=== PATIENT | male | born 1950 | race Caucasian/White ===

== ENCOUNTER 2016-10-14 09:45 | Emergency (ER) | payer OTHER ==
[2016-10-14] MEDS ORDERED: XYLOCAINE 1% and EPINEPHRINE 1:100,000 ONE (09:46)
[2016-10-14 09:50] VITALS: BMI 17.6
[2016-10-14 09:56] VITALS: BP 200/80
--- NOTE | 2016-10-14 10:16 | RAD ---
HISTORY: pain Study: Right shoulder series Comparison: None Findings: There is mild narrowing of the glenohumeral joint. No fracture or dislocation is seen. There are mod erate hypertrophic changes of the AC joint. The bones are osteopenic. No fracture or dislocation is seen. There is some questionable parenchymal opacity along the right perihilar region with a metalli c foreign body seen projecting over the chest. 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 Vague parenchymal opacity along the right perihilar region with a metallic linear artifact projectin g in the area. Recommend a followup PA and lateral chest. Reported By:
--- NOTE | 2016-10-14 10:41 | RAD ---
HISTORY: Abnormal lesion Study: PA and lateral Comparison: CT chest 12/18/2014 Findings: The heart is normal. The pulmonary vessels are normal. The lungs are mildly hyperinflated and emphys ematous. There is some linear parenchymal scarring along the right apex extending laterally . There is a rounded and irregular focal parenchymal opacity along the right upper lobe inferior laterally m easuring 2.6 cm which was seen on the prior CT scan and was partially calcified at that time and leyva s not appear to be significantly changed . There is a smaller nodule in the right upper lobe anterio rly which is also partially calcified and unchanged. There is a 1.2 cm linear metallic foreign body seen posteriorly along the upper chest wall on the right which was not seen on the prior CT scan. Th ere is no effusion or pneumothorax. IMPRESSION: 1.2 cm linear metallic foreign body seen along the posterior upper chest on the right, the position of which is uncertain. This was not seen on the prior CT scan and 2015 , recommend clinical followup . Chronic obstructive lung changes with right biapical pleural thickening and scarring and parenchymal nodules along the right upper lobe anteriorly and posteriorly which appear partially calcified and are grossly unchanged from the prior CT scan. Mild bibasilar linear scarring along the lung bases with no acute infiltrate or effusion. Reported By:
--- NOTE | 2016-10-14 11:32 | CT ---
HISTORY: Possible foreign object. Was mowing when he thinks a stick or wire hit him in the back. W ound will not stop bleeding. Study: Noncontrast CT scan of the chest Comparison: Chest x-ray done earlier on the same date Technique: non contrasted CT images of the chest are reviewed in axial, coronal and sagittal planes. Dose reduction techniques utilized automatic exposure control. Findings: There is a 1 centimeter metallic foreign body present projected in the interosseous space between th e right 5th and 6th ribs posterolaterally. This is just cephalad to the tip of the scapula. This is also medial to the scapula in location. The foreign body does not appear to enter the pleural space. No fractures are seen. Severe changes of COPD are again seen involving both lungs with calcified an d noncalcified granulomas present involving both lungs. No consolidation, pleural fluid or pneumotho rax is seen. Mild multilevel thoracic spondylosis is appreciated. Images did extend into the upper a bdomen. The uppermost portions of a aortic endo grafts are identified. There is incidentally seen to be a 5.4 millimeter solitary calcified gallstone. The liver and adrenal glands are normal. IMPRESSION: 1 Centimeter metallic foreign body present in the interosseous space between the right 5th and 6th ribs posterolaterally. This is just cephalad and medial to the tip of the scapula. The foreign body does not appear to enter the pleural space. Severe COPD. Calcified solitary gallstone. Reported By:
[2016-10-14] MEDS ORDERED: ADACEL TDaP IM ONE ×2 (11:57)
--- NOTE | 2016-10-14 12:00 | DR.GENAD ---
HPI - PCP Primary Care Physician: GIOVANNA - Complaint/Symptoms Chief Complaint Doctors Comments: Patient in on anticoagulants. Chief Complaint:: PATIENT WAS MOWING WHEN A HE THINKS THAT A STICK OR WIRE HIT HIM IN THE BACK. PATIENT NOW HAS A WOUND THAT WILL NOT STOP BLEEDING. FAMILY STATED THAT IT HAS BEEN BLEEDING NONE STOP FOR ABOUT 1HOUR AGO. - Source History Provided: Patient - Mode of Arrival Mode of Arrival: Ambulatory - Timing Onset of Chief Complaint: 10/14/16 PMH - PMH Past Medical History: No Past Surgical History: Yes Surgical History: AAA Repair - Family History History of Family Medical Conditions: No - Social History Does patient currently use any type of tobacco product: Yes Have you used tobacco products in the last 12 months: Yes Type of Tobacco Use: Cigarettes Does any household member use tobacco: No Alcohol Use: None Do you use any recreational Drugs:: No Lives With: Family Lives Where: Home - infectious screening In the last 2 months have you had wt loss of >10#?: NO Have you had fever, night sweats or hemotysis?: No Have you traveled outside the country in the last 6 months?: No Isolation: Standard ROS - Review of Systems Eyes: No Symptoms Reported ENTM: No Symptoms Reported Respiratoy: No Symptoms Reported Cardiovascular: No Symptoms Reported Gastrointestinal/Abdominal: No Symptoms Reported Genitourinary: No Symptoms Reported Neurological: No Symptoms Reported Musculoskeletal: Other (right inferior scapula a 0.5mm laceration) Integumentary: Wound Hematologic/Lymphatic: No Symptoms Reported Endocrine: No Symptoms Reported Psychiatric: No Symptoms Reported All Other Systems: Reviewed and Negative PE - Vital Signs Vitals: Temperature 98.3 F Pulse Rate 72 Respiratory Rate 20 Blood Pressure 200/80 O2 Sat by Pulse Oximetry 98 - General General Appearance: Alert, In No Apparent Distress - Head Head Exam: Normal Inspection, Atraumatic - Eyes Eye exam: Normal Appearance, PERRL, EOMI - ENT ENT Exam: Normal Exam External Ear Exam: Normal External Inspection TM/Canal Exam: Bilateral Normal Nose Exam: Normal Nose Exam Mouth Exam: Normal Inspection Throat Exam: Normal Inspection - Neck Neck Exam: Full ROM - Chest Chest Inspection: Normal Inspection - Respiratory Respiratory Exam: Normal Lung Sounds Bilat Respiratory Exam: Bilateral Clear to Auscultation - Cardiovascular Cardiovascular Exam: Regular Rate - Abdominal Exam Abdominal Exam: Normal Inspection Abdominal Tenderness: negative: RUQ, RLQ, LUQ, LLQ, Epigastrium, Suprapubic, Diffuse, Mild, Moderate, Severe, Other - Extremities Extremities Exam: Normal Inspection, Full ROM - Back Back Exam: Normal Inspection - Neurologic Neurological Exam: Alert, Oriented X3, CN II-XII Intact - Psychiatric Psychiatric Exam: Normal Affect, Normal Mood - Skin Skin Exam: Warm, Dry (0.5mm laceration right inferior medial scapula) Course - Treatment Treatment: 0.5cm laceration sutured with two x 4-0 ethilon, lidocaine 1%with 8cc ROR - XRAY XRAY Interpreted by: Radiologist (Multiple film obtained; CT Chesta 1cm metallic foreign body present in the interosseous space between the right 5 and 6th ribs posterolaterally. This is just cephalad and medial to the tip of the scapula. The foreign body does not appear to enter the pleural space.) - Diagnosis Discharge Problem: foreigy body Interosseous space of back Laceration of back Qualifiers: Encounter type: initial encounter Laterality: right Qualified Code(s): S21.211A - Laceration without foreign body of right back wall of thorax without penetration into thoracic cavity, initial encounter - Discharge Plan Condition: Stable - Follow ups/Referrals Follow ups/Referrals: LEATHA HEREDIA [Primary Care Provider] - 3 days - Instructions
== END 2016-10-14 12:10 | disposition home or self-care (01) ==
LOC: ER 09:47
DX: S21.211A Laceration without foreign body of right back wall of thorax without penetration into thoracic cavity, initial encounter (principal); S30.850A Superficial foreign body of lower back and pelvis, initial encounter; X58.XXXA Exposure to other specified factors, initial encounter; Y92.9 Unspecified place or not applicable
CPT/HCPCS: 71020; 71250; 73030; 90471; 99283; J2001

== ENCOUNTER 2024-12-05 08:26 | Observation (INO) ==
--- NOTE | 2024-12-05 08:51 | DR.DIZZY ---
HPI Time seen Time Seen by Provider: 12/05/24 08:46 Complaint Chief Complaint Doctor Comments: According to the patient's spouse he awakened this morning dizzy counter not able to hold his balance he was little disoriented he did not know given to him like the time. Stated he just felt weak. He denied chest pain. We did start the stroke alert with this patient. Context Stroke Symptoms: Acute confusion PMH PMH Past Medical History: Coronary Artery Disease, GERD and Hypertension Past Surgical History: Yes Surgical History: CABG/Valve Surgery Family History Family Medical History: Coronary Artery Disease and Hypertension Social History Do you use any recreational Drugs:: No ROS Review of Systems Constitutional: Other (unstable gait with slurring of speech) Eyes: No Symptoms Reported ENTM: No Symptoms Reported Respiratoy: No Symptoms Reported Cardiovascular: No Symptoms Reported Gastrointestinal/Abdominal: No Symptoms Reported Genitourinary: No Symptoms Reported Neurological: Problems Walking and Speech Problem Musculoskeletal: Other (muscle weakness) Integumentary: No Symptoms Reported Hematologic/Lymphatic: No Symptoms Reported Endocrine: No Symptoms Reported Psychiatric: No Symptoms Reported All Other Systems: Reviewed and Negative PE Vital Signs Vitals: Vital Signs Temperature 97.9 F Pulse Rate 84 Pulse Rate 78 Pulse Rate 82 Pulse Rate 84 Pulse Rate 83 Pulse Rate 83 Pulse Rate 82 Pulse Rate 79 Pulse Rate 80 Pulse Rate 80 Pulse Rate 82 Pulse Rate 74 Pulse Rate 76 Pulse Rate 65 Pulse Rate 76 Pulse Rate 80 Pulse Rate 79 Pulse Rate 83 Pulse Rate 83 Pulse Rate 79 Pulse Rate 81 Pulse Rate 80 Pulse Rate 81 Pulse Rate 83 Pulse Rate 82 Respiratory Rate 22 Respiratory Rate 22 Respiratory Rate 21 Respiratory Rate 19 Respiratory Rate 18 Respiratory Rate 23 Respiratory Rate 27 Respiratory Rate 20 Respiratory Rate 26 Respiratory Rate 20 Respiratory Rate 24 Respiratory Rate 20 Respiratory Rate 24 Respiratory Rate 25 Respiratory Rate 14 Respiratory Rate 18 Respiratory Rate 23 Respiratory Rate 26 Respiratory Rate 23 Respiratory Rate 15 Respiratory Rate 21 Respiratory Rate 22 Respiratory Rate 23 Respiratory Rate 23 Respiratory Rate 17 Blood Pressure 184/72 Blood Pressure 175/75 Blood Pressure 175/75 Blood Pressure 149/75 Blood Pressure 155/69 Blood Pressure 168/66 Blood Pressure 172/77 Blood Pressure 174/77 Blood Pressure 173/76 Blood Pressure 197/82 Blood Pressure 183/77 Blood Pressure 181/79 Blood Pressure 165/74 Blood Pressure 184/78 Blood Pressure 182/78 Blood Pressure 182/78 Blood Pressure 212/88 O2 Sat by Pulse Oximetry 100 O2 Sat by Pulse Oximetry 100 O2 Sat by Pulse Oximetry 100 O2 Sat by Pulse Oximetry 100 O2 Sat by Pulse Oximetry 100 O2 Sat by Pulse Oximetry 100 O2 Sat by Pulse Oximetry 100 O2 Sat by Pulse Oximetry 100 O2 Sat by Pulse Oximetry 100 O2 Sat by Pulse Oximetry 100 O2 Sat by Pulse Oximetry 100 O2 Sat by Pulse Oximetry 100 O2 Sat by Pulse Oximetry 100 O2 Sat by Pulse Oximetry 99 O2 Sat by Pulse Oximetry 98 O2 Sat by Pulse Oximetry 97 O2 Sat by Pulse Oximetry 97 O2 Sat by Pulse Oximetry 97 O2 Sat by Pulse Oximetry 96 O2 Sat by Pulse Oximetry 97 O2 Sat by Pulse Oximetry 97 General Limitations: Physical Limitation (unstable gait) Head Head Exam: Normal Inspection Eyes Eye exam: Normal Appearance Pupils: Regular, Round: Bilateral ENT ENT Exam: Normal Exam, Normal Oropharynx and Normal External Ear Exam Neck Neck Exam: Normal Inspection and Full ROM Chest Chest Inspection: Normal Inspection Respiratory Respiratory Exam: Normal Lung Sounds Bilat Cardiovascular Cardiovascular Exam: Regular Rate Abdominal Exam Abdominal Exam: Normal Inspection Rectal Rectal Exam: Deferred Extremeties Extremities Exam: Normal Inspection Back Back Exam: Normal Inspection and Full ROM Neurologic Neurological Exam: Alert, Oriented X3 and CN II-XII Intact Patient Oriented To: Person and Place Speech: Fluid Speech Motor Strength - LUE: 5/5 Motor Strength - RUE: 4/5 Motor Strength - LLE: 4/5 Motor Strength - RLE: 4/5 Psychiatric Psychiatric Exam: Normal Affect Skin Skin Exam: Warm, Dry and Intact MDM Differential Diagnosis Differential Diagnosis: CVA, Electrolyte disorder, TIA and Other (urti,uti) COURSE Treatment Treatment: Patient may relatively stable during ER evaluation. He did have the stroke alert protocol done and Dr.Hsiong Benedict who neurologist evaluate this patient and he said the CT scan showed no acute intracranial findings and he felt that this most probably be was some type of electrolyte abnormality or some metabolic abnormality shift and a source for his complaints. We did do a chest x-ray and showed interstitial markings and hyperinflation of the lungs with patchy airspace opacities and stated that findings were suggestive of pneumonia superimposed on COPD. Patient had a white count of 26.3 and he did have some renal insufficiency with a BUN being 25 creatinine 2.08 his GFR was 33. Did a troponin which is 10.9 which is in the normal range and we did a COVID respiratory panel that was negative. This patient lactic acid was 3.6 which was elevated and his blood pressure was elevated at around 196/90 and was fluctuating so we did give him hydralazine 10 mg IV and he was also given 1 g of Rocephin IV in the emergency department. Spoke to the patient and the family about the findings that we have here and the possibility that he could be admitted for pneumonia and sepsis. And they were agreeable to the admission. We did consult with the case management and they said the patient could be referred to observation for further treatment. I spoke to Dr. Brown at and he accepted patient for the diagnosis and admission. ROR Labs Reviewed Laboratory Results Reviewed?: Yes 12/05/24 08:41 12/05/24 08:41 Laboratory: WBC 26.3 X10^3/uL (3.6-10.0) H 12/05/24 08:41 RBC 4.99 X10^6/uL (4.7-6.0) 12/05/24 08:41 Hgb 15.2 g/dL (13.5-18.0) 12/05/24 08:41 Hct 45.6 % (42.0-54.0) 12/05/24 08:41 MCV 91.4 fL (80.0-100.0) 12/05/24 08:41 MCH 30.5 pg (27.0-34.0) 12/05/24 08:41 MCHC 33.4 g/dL (33.0-35.0) 12/05/24 08:41 RDW 15.3 % (11.6-16.5) 12/05/24 08:41 Plt Count 198 X10^3/uL (150.0-450.0) 12/05/24 08:41 Plt Count Comment Adequate (ADEQUATE) 12/05/24 08:41 MPV 8.2 fL (7.4-11.0) 12/05/24 08:41 Neut % (Auto) 90.8 % (42.0-75.0) H 12/05/24 08:41 Lymph % (Auto) 3.6 % (21.0-51.0) L 12/05/24 08:41 [place] % (Auto) 5.0 % (0.0-13.0) 12/05/24 08:41 Eos % (Auto) 0.3 % (0.9-2.9) L 12/05/24 08:41 Baso % (Auto) 0.3 % (0.2-1.0) 12/05/24 08:41 Neut # (Auto) 23.9 x10^3/uL (2.2-4.8) H 12/05/24 08:41 Lymph # (Auto) 0.9 X10^3/uL (1.3-2.9) L 12/05/24 08:41 [place] # (Auto) 1.3 x10^3/uL (0.3-0.8) H 12/05/24 08:41 Eos # (Auto) 0.1 x10^3/uL (0.0-0.2) 12/05/24 08:41 Baso # (Auto) 0.1 X10^3/uL (0.0-0.1) 12/05/24 08:41 Absolute Nucleated RBC 0.0 /100WBC 12/05/24 08:41 Total Counted 100 12/05/24 08:41 Neutrophils % (Manual) 78 % (39-76) H 12/05/24 08:41 Band Neutrophils % 9 % (0-10) 12/05/24 08:41 Lymphocytes % (Manual) 6 % (13-43) L 12/05/24 08:41 Monocytes % (Manual) 7 % (4-9) 12/05/24 08:41 Plt Morphology Comment Normal (NORMAL) 12/05/24 08:41 RBC Morphology Normal (NORMAL) 12/05/24 08:41 PT 13.5 SECONDS (11.8-14.3) 12/05/24 08:41 INR Target Range - 12/05/24 08:41 INR 1.01 (0.8-1.3) 12/05/24 08:41 APTT 25.1 SECONDS (22.9-36.5) 12/05/24 08:41 PTT Comment - 12/05/24 08:41 Fibrinogen 444 mg/dL (239-489) 12/05/24 08:41 Sodium 140 mmol/L (136-145) 12/05/24 08:41 Corrected Sodium 141 mmol/L (136-145) 12/05/24 08:41 Potassium 4.1 mmol/L (3.5-5.1) 12/05/24 08:41 Chloride 105 mmol/L (98-107) 12/05/24 08:41 Carbon Dioxide 26.3 mmol/L (21-32) 12/05/24 08:41 BUN 25 mg/dL (7-18) H 12/05/24 08:41 Creatinine 2.08 mg/dL (0.70-1.30) H 12/05/24 08:41 Est GFR (MDRD) Af Amer 40 (>60) L 12/05/24 08:41 Est GFR (MDRD) Non-Af 33 (>60) L 12/05/24 08:41 Glucose 124 mg/dL (65-99) H 12/05/24 08:41 Lactic Acid 3.0 mmol/L (0.4-2.0) H 12/05/24 11:35 Calcium 8.3 mg/dL (8.5-10.1) L 12/05/24 08:41 Corrected Calcium 8.9 mg/dL (8.5-10.1) 12/05/24 08:41 Total Bilirubin 0.90 mg/dL (0.2-1.0) 12/05/24 08:41 AST 37 Units/L (15-37) 12/05/24 08:41 ALT 49 Units/L (12-78) 12/05/24 08:41 Alkaline Phosphatase 87 Units/L (46-116) 12/05/24 08:41 Creatine Kinase 58 Units/L (39-308) 12/05/24 08:41 Troponin I High Sens 10.9 ng/L (4.0-60.0) 12/05/24 08:41 Total Protein 7.2 g/dL (6.4-8.2) 12/05/24 08:41 Albumin 3.2 g/dL (3.4-5.0) L 12/05/24 08:41 Globulin 4.0 g/dL (2.5-4.5) 12/05/24 08:41 Albumin/Globulin Ratio 0.8 Ratio (1.1-2.1) L 12/05/24 08:41 Triglycerides 82 mg/dL (0-150) 12/05/24 08:41 Cholesterol 107 mg/dL (0-200) 12/05/24 08:41 LDL Cholesterol, Calc 32 mg/dL (0-100) 12/05/24 08:41 HDL Cholesterol 59 mg/dL (40-60) 12/05/24 08:41 Cholesterol/HDL Ratio 1.8 (0.0-5.0) 12/05/24 08:41 Specimen Type Clean catch urine 12/05/24 10:29 Urine Color Yellow (YELLOW) 12/05/24 10:29 Urine Appearance Clear (CLEAR) 12/05/24 10:29 Urine pH 6.0 (5.0 - 8.0) 12/05/24 10:29 Ur Specific [place] 1.020 (1.000-1.030) 12/05/24 10:29 Urine Protein 2+ (NEGATIVE) 12/05/24 10:29 Urine Glucose (UA) 4+ (NEGATIVE) 12/05/24 10:29 Urine Ketones Negative (NEGATIVE) 12/05/24 10:29 Urine Blood 1+ (NEGATIVE) 12/05/24 10:29 Urine Nitrite Negative (NEGATIVE) 12/05/24 10:29 Urine Bilirubin Negative (NEGATIVE) 12/05/24 10:29 Urine Urobilinogen Normal (NORMAL) 12/05/24 10:29 Ur Leukocyte Esterase Negative (NEGATIVE) 12/05/24 10:29 Urine RBC None seen /HPF (0-3) 12/05/24 10:29 Urine WBC None seen /HPF (0-5) 12/05/24 10:29 Ur Squamous Epith Cells Negative /HPF (NEGATIVE) 12/05/24 10:29 Urine Bacteria Negative /HPF (NEGATIVE) 12/05/24 10:29 Ur Culture Indicated? No/not indicated 12/05/24 10:29 SARS-CoV-2 (PCR) Negative (NEGATIVE) 12/05/24 09:06 Influenza Type A (PCR) Negative (NEGATIVE) 12/05/24 09:06 Influenza Type B (PCR) Negative (NEGATIVE) 12/05/24 09:06 RSV (PCR) Negative (NEGATIVE) 12/05/24 09:06 Opioid Opioid Risk Tool Age (Bhavik box if 16-45): No History of Preadolescent Sexual Abuse: No Total: 0 Total Score Risk Category: Low Risk Copyright: Yoshi SINGH predicting aberrant behaviors Discharge Plan Diagnosis Discharge Problem: Pneumonia, Sepsis, Hypertension Discharge Plan Patient Disposition: 09 ADMITTED INPATIENT Condition: Stable Prescriptions: No Action tamsulosin 0.4 mg capsule 0.4 mg PO DAILY amitriptyline 10 mg tablet 10 mg PO QPM ondansetron 4 mg Tablet,Disintegrating 4 mg PO PRN PRN atorvastatin 40 mg Tablet 40 mg PO DAILY famotidine 40 mg Tablet 40 mg PO BID clopidogrel [Plavix] 75 mg Tablet 75 mg PO DAILY baclofen 20 mg Tablet 20 mg PO TID cyclobenzaprine 10 mg tablet 10 mg PO TID alprazolam 0.5 mg tablet 0.5 mg PO DAILY pantoprazole 40 mg tablet,delayed release (DR/EC) 40 mg PO QDAY ezetimibe 10 mg tablet 10 mg PO QDAY dapagliflozin propanediol [Farxiga] 10 mg tablet 10 mg PO QDAY Health Concerns: Post Hospitalization: new medications and changes needed to prevent readmission or further decline. Pt educated and given instructions on all concerns. Plan of Treatment: Continue with present treatment and follow up plan. Pt is to keep follow up appointment as instructed and take medications as ordered. Orders to Discharge Patient Discharge Orders: Transfer (Routine); Ordered 12/05/24 Ordered By: Gonzalo Raymond Follow ups/Referrals Follow ups/Referrals: DANIELLE UNDERWOOD [Primary Care Provider, MEDICAL] - 3 days Instructions Stand Alone Forms: Find Help Web Site, Post Hospital Follow Up Care Print Language: CROATIAN
[2024-12-05 09:01] LABS: MEAN PLATELET VOLUME 8.2 fL (7.4-11.0)
[2024-12-05 09:02] LABS: INR 1.01 (0.8-1.3)
[2024-12-05 09:04] LABS: RED CELL DISTRIBUTION WIDTH 15.3 % (11.6-16.5)
--- NOTE | 2024-12-05 09:04 | EKG ---
Test Reason : poss stroke Blood Pressure : */* mmHG Vent. Rate : 80 BPM Atrial Rate : 80 BPM P-R Int : 162 ms QRS Dur : 112 ms QT Int : 354 ms P-R-T Axes : 61 47 23 degrees QTc Int : 408 ms Normal sinus rhythm Incomplete right bundle branch block Borderline ECG No previous ECGs available Confirmed by Jordan Adame MD ([id number]) on 12/06/2024 8:22:25 AM Referred By: Confirmed By: Jordan Adame MD
--- NOTE | 2024-12-05 09:08 | TELESTROKE ---
[facility] Consult Date of Consult Date of Exam: 12/05/24 Time of Arrival to the ED: 08:26 Allergies Allergies Allergy/AdvReac Type Severity Reaction Status Date / Time No Known Drug Allergies Allergy Unknown Verified 09/23/24 18:25 History of Present Illness History of Present Illness: [facility] Consult Services Patient Name:Angel Davalos Date of :1950 Identification Number: Date of Service:12/05/2024 08:38:45 Diagnosis:R53.1 - Weakness Impression: The patient is a 74 year old man with a history of hypertension, hyperlipidemia, CAD, COPD, PVD, aortic aneurysm, who presents with generalized weakness, AMS, and asterixis. Encephalopathy favored over CVA. Recommend toxic- metabolic evaluation. If no clear etiology found or patient not improving as expected, advise MRI brain without contrast and EEG. Our recommendations are outlined below. Recommendations: Stroke/Telemetry Floor Neuro Checks Bedside Swallow Eval DVT Prophylaxis IV Fluids, Normal Saline Head of Bed 30 Degrees Euglycemia and Avoid Hyperthermia (PRN Acetaminophen) Sign Out: Discussed with Emergency Department Provider Advanced Imaging: Advanced Imaging Deferred because: Non-disabling symptoms as verified by the patient; no cortical signs so not consistent with LVO Metrics: Last Known Well: 12/04/2024 21:30:00 Dispatch Time: 12/05/2024 08:38:45 Arrival Time: 12/05/2024 08:26:00 Initial Response Time: 12/05/2024 08:41:18Symptoms: weakness, AMS. Initial patient interaction: 12/05/2024 08:43:16 NIHSS Assessment Completed: 12/05/2024 08:56:57Patient is not a candidate for Thrombolytic. Thrombolytic Medical Decision: 12/05/2024 08:56:58Patient was not deemed candidate for Thrombolytic because of following reasons: LKW outside 4.[address] Head: I personally reviewed all the CT images that were available to me and it showed: no acute abnormality Primary Provider Notified of Diagnostic Impression and Management Plan on: 12/05/2024 09:08:06 History of Present Illness:Patient is a 74 year old Male. Patient was brought by private transportation with symptoms of weakness, AMS. Patient last normal at 9 PM last night. This morning awoke feeling confused and generally weak. Reports gait instability, denies dizziness. Denies focal weakness or numbness of extremities. He has slurred speech and slow cognition. He is disoriented. On exam bilateral asterixis noted. Past Medical History: Hypertension Hyperlipidemia Coronary Artery Disease There is no history of Diabetes Mellitus Other PMH: COPD, PVD, aortic aneurysm Medications: No Anticoagulant use Antiplatelet use:YesPlavix Reviewed EMR for current medications Allergies: NKDA Social History: Smoking: No Family History: There is no family history of premature cerebrovascular disease pertinent to this consultation ROS : 14 Points Review of Systems was performed and was negative except mentioned in HPI. Past Surgical History: There Is No Surgical History Contributory To Todays Visit Examination: BP(173/79),Pulse(84), 1A: Level of Consciousness - Alert; keenly responsive+ 0 1B: Ask Month and Age - Could Not Answer Either Question Correctly+ 2 1C: Blink Eyes & Squeeze Hands - Performs Both Tasks+ 0 2: Test Horizontal Extraocular Movements - Normal+ 0 3: Test Visual Michelle - No Visual Loss+ 0 4: Test Facial Palsy (Use Grimace if Obtunded) - Normal symmetry+ 0 5A: Test Left Arm Motor Drift - No Drift for 10 Seconds+ 0 5B: Test Right Arm Motor Drift - No Drift for 10 Seconds+ 0 6A: Test Left Leg Motor Drift - No Drift for 5 Seconds+ 0 6B: Test Right Leg Motor Drift - No Drift for 5 Seconds+ 0 7: Test Limb Ataxia (FNF/Heel-Singh) - No Ataxia+ 0 8: Test Sensation - Normal; No sensory loss+ 0 9: Test Language/Aphasia - Normal; No aphasia+ 0 10: Test Dysarthria - Mild-Moderate Dysarthria: Slurring but can be understood+ 1 11: Test Extinction/Inattention - No abnormality+ 0 NIHSS Score:3 Pre-Morbid Modified [place] Scale:0 Points = No symptoms at all Spoke with :ED MD Dr. Raymond This consult was conducted in real time using interactive audio and video technology. Patient was informed of the technology being used for this visit and agreed to proceed. Patient located in hospital and provider located at home/office setting. Patient is being evaluated for possible acute neurologic impairment and high probability of imminent or life-threatening deterioration. I spent total of 30 minutes providing care to this patient, including time for face to face visit via telemedicine, review of medical records, imaging studies and discussion of findings with providers, the patient and/or family. Dr Maik Benedict [facility] For Inpatient follow-up with [facility] physician please call [facility] at . As we are not an outpatient service for any post hospital discharge needs please contact the hospital for assistance. If you have any questions for the [facility] physicians or need to reconsult for clinical or diagnostic changes please contact us via [facility] at . Signature :Maik Benedict Medical Decision Making 12/05/24 08:41 12/05/24 08:41
[2024-12-05 09:09] LABS: CHOL/HDL RATIO 1.8 (0.0-5.0); COR CA(FOR HYPOALB) 8.9 mg/dL (8.5-10.1); COR NA(FOR HYPERGLY) 141.0 mmol/L (136-145); CREATININE 2.08 mg/dL (0.70-1.30); eGFR NON BLACK RACES 33.0 (>60)
--- NOTE | 2024-12-05 09:14 | CT ---
EXAM: CT HEAD WITHOUT CONTRAST HISTORY: POSS STROKE; COMPARISON: None. TECHNIQUE: Axial CT images were obtained through the brain without contrast. All CT scans at this facility use dose modulation, iterative reconstruction, and/or weight based dosing when appropriate to reduce radiation dose to as low as reasonably achievable. FINDINGS: No acute intracranial hemorrhage or extra-axial fluid collection. No mass effect or midline shift. Moderate cerebral atrophy and chronic microvascular white matter disease. No regional areas of padilla-white differentiation loss. Intact calvarium. Paranasal sinuses and mastoid air cells are well-aerated. IMPRESSION: No acute intracranial findings. THIS IS AN ELECTRONICALLY VERIFIED FINAL REPORT 12/05/2024 9:05 AM - Electronically signed by Glen Oakley MD
[2024-12-05] MEDS: NS 1,000 ML IV 1,000 ML IV SCH (09:25)
--- NOTE | 2024-12-05 09:28 | RAD ---
EXAM: CHEST, 1 VIEW HISTORY: POSS STROKE; COMPARISON: No relevant prior studies were available for comparison at the time of interpretation. TECHNIQUE: CHEST, 1 VIEW FINDINGS: Chest: Lines and tubes: Cardiac leads overlie the chest. Mediastinum: Median sternotomy wires are present. Cardiac shadow is normal in size. Pulmonary vessels: No pulmonary vascular congestion. Lung giles: Interstitial markings and hyperinflation of the lungs with diaphragmatic flattening. There are patchy airspace opacities Pleura: No effusion. No pneumothorax. Bones and soft tissues: No acute osseous or soft tissue abnormality. IMPRESSION: 1. Findings suggest pneumonia superimposed on COPD THIS IS AN ELECTRONICALLY VERIFIED FINAL REPORT 12/05/2024 9:25 AM - Electronically signed by Luciano Guardado MD
[2024-12-05 09:38] LABS: BAND NEUTROPHILS % 9 % (0-10)
[2024-12-05 09:39] LABS: PLATELET MORPHOLOGY COMMENT NORMAL (NORMAL)
[2024-12-05] MEDS: ROCEPHIN VIAL 1 GRAM IVP ONE (10:22)
[2024-12-05 11:02] LABS: BLOOD/HEMOGLOBIN,URINE 1+ (NEGATIVE); LEUKOCYTE ESTERASE ,URINE NEGATIVE (NEGATIVE); NITRITES,URINE NEGATIVE (NEGATIVE)
[2024-12-05] MEDS: APRESOLINE INJ 20 MG VIAL IVP ONE (11:02)
[2024-12-05 11:10] LABS: APPEARANCE,URINE CLEAR (CLEAR); SQUAMOUS EPITHELIAL CELL,UR NEGATIVE /HPF (NEGATIVE)
[2024-12-05] MEDS: APRESOLINE INJ 20 MG VIAL ONE (13:23)
[2024-12-05] MEDS: ROCEPHIN VIAL 1 GRAM 1 G in NS 100 ML IV 100 ML IV SCH (13:23)
[2024-12-05] MEDS ORDERED: ZOFRAN ODT PO PRN (13:36)
[2024-12-05 14:34] VITALS: BMI 25.3
[2024-12-05] MEDS: XOPENEX 1.25 MG/3 ML NEBULE NEB SCH (16:48)
[2024-12-05] MEDS: ELAVIL PO SCH (20:23)
[2024-12-05] MEDS: PEPCID TAB 40 MG PO SCH (20:23)
[2024-12-05] MEDS: PULMICORT NEB TX 0.5 MG NEB SCH (20:40)
[2024-12-05] MEDS ORDERED: FLEXERIL TAB 10 MG PO PRN (20:41)
[2024-12-05] MEDS: ALPRAZOLAM ODT PO SCH (21:37)
[2024-12-06] MEDS: COREG TAB 3.125 MG PO SCH (06:05)
[2024-12-06 06:16] LABS: MEAN PLATELET VOLUME 8.0 fL (7.4-11.0); RED CELL DISTRIBUTION WIDTH 16.0 % (11.6-16.5)
[2024-12-06 06:42] LABS: COR CA(FOR HYPOALB) 9.1 mg/dL (8.5-10.1); CREATININE 1.70 mg/dL (0.70-1.30); eGFR NON BLACK RACES 42 (>60)
[2024-12-06] MEDS: XOPENEX 1.25 MG/3 ML NEBULE NEB ONE (06:49)
[2024-12-06] MEDS: FARXIGA PO SCH (08:26)
[2024-12-06] MEDS: ZETIA TAB 10 MG PO SCH (08:26)
[2024-12-06] MEDS: LIPITOR TAB 40 MG PO SCH (08:27)
[2024-12-06] MEDS: PROTONIX TAB 40 MG PO SCH (08:27)
[2024-12-06] MEDS: PLAVIX PO SCH (08:28)
[2024-12-06] MEDS: FLOMAX PO SCH (08:28)
[2024-12-06] MEDS ORDERED: ALPRAZOLAM ODT PO SCH (09:00)
--- NOTE | 2024-12-06 10:46 | DR.H&P ---
H&P History & Physical for Day of: H&P Date: 12/06/24 Chief Complaint Chief Complaint: confusion weakness, shortness of breath History of Present Illness History of Present Illness: Patient is a 74-year-old male with past medical history of Hypertension, CAD/CABG, Hyperlipidemia, that presented after having some confusion, weakness, shortness of breath. He reports that [place] and dealing with [place] chemicals been he feels like symptoms started. He then reports feeling cough and shortness of breath. He was then taken to the ER for further evaluation. Labs/imaging: WBC 2614.1, hemoglobin 13.2, platelets 170, sodium 145, potassium 4.3, creatinine 1.70, glucose 99, UA negative, blood cultures pending, AIT pending, CT of the head revealed no acute intracranial findings. Chest x-ray did reveal pneumonia superimposed COPD. Lactic acid 2.71.4. Patient was admitted for pneumonia and sepsis. He was started on IV fluids normal saline. He was also started on IV antibiotics Rocephin daily. Will add azithromycin. Patient this morning reports feeling improvement in his symptoms. He is still coughing up clear mucus. Will also continue with scheduled bronchodilators. Otherwise restart home medications and continue with current treatment plan. Continue closely monitor and follow-up labs/imaging. Past Medical History Past Medical History: Coronary Artery Disease, GERD and Hypertension Past Surgical History Surgical History: Angioplasty/Stents, Appendectomy and CABG/Valve Surgery Family History Family Medical History: Cancer Social History Does patient currently use any type of tobacco product: No Have you used tobacco products in the last 12 months: No Type of Tobacco Use: None How many years tobacco product used: 55 Does any household member use tobacco: No Alcohol Use: None Drug Use: None Medications Home Medications: Home Medications Medication Instructions Recorded Confirmed Type atorvastatin 40 mg tablet 80 mg PO DAILY 06/30/2008/24 History baclofen 20 mg tablet 20 mg PO TID 06/30/20 History clopidogrel 75 mg tablet (Plavix) 75 mg PO DAILY 06/3012/05/24 History famotidine 40 mg tablet 40 mg PO BID 06/30/20 History alprazolam 0.5 mg tablet 0.5 mg PO DAILY PRN 09/23/24 12/05/24 History cyclobenzaprine 10 mg tablet 10 mg PO TID PRN 09/23/24 12/05/24 History dapagliflozin propanediol 10 mg 10 mg PO QDAY 09/23/24 12/05/24 History tablet (Farxiga) ezetimibe 10 mg tablet 10 mg PO QDAY 09/23/2412/05 History pantoprazole 40 mg tablet,delayed 40 mg PO QDAY 12/05/24 History release amitriptyline 10 mg tablet 10 mg PO QPM 12/05/2412/05 History carvedilol 3.125 mg tablet 3.125 mg PO BID 12/05/24 History ondansetron 4 mg disintegrating 4 mg PO PRN PRN 12/05/24 History tablet tamsulosin 0.4 mg capsule 0.4 mg PO DAILY 12/05/2408/24 History Allergies Allergies Allergy/AdvReac Type Severity Reaction Status Date / Time No Known Drug Allergies Allergy Unknown Verified 12/05/24 09:13 Labs 12/06/24 05:50 12/06/24 05:50 Labs: Laboratory WBC 14.1 X10^3/uL (3.6-10.0) H D 12/06/24 05:50 RBC 4.32 X10^6/uL (4.7-6.0) L 12/06/24 05:50 Hgb 13.2 g/dL (13.5-18.0) L D 12/06/24 05:50 Hct 39.6 % (42.0-54.0) L 12/06/24 05:50 MCV 91.5 fL (80.0-100.0) 12/06/24 05:50 MCH 30.6 pg (27.0-34.0) 12/06/24 05:50 MCHC 33.4 g/dL (33.0-35.0) 12/06/24 05:50 RDW 16.0 % (11.6-16.5) 12/06/24 05:50 Plt Count 170 X10^3/uL (150.0-450.0) 12/06/24 05:50 Plt Count Comment Adequate (ADEQUATE) 12/05/24 08:41 MPV 8.0 fL (7.4-11.0) 12/06/24 05:50 Neut % (Auto) 82.1 % (42.0-75.0) H 12/06/24 05:50 Lymph % (Auto) 10.5 % (21.0-51.0) L 12/06/24 05:50 [place] % (Auto) 5.3 % (0.0-13.0) 12/06/24 05:50 Eos % (Auto) 1.6 % (0.9-2.9) 12/06/24 05:50 Baso % (Auto) 0.5 % (0.2-1.0) 12/06/24 05:50 Neut # (Auto) 11.6 x10^3/uL (2.2-4.8) H 12/06/24 05:50 Lymph # (Auto) 1.5 X10^3/uL (1.3-2.9) 12/06/24 05:50 [place] # (Auto) 0.7 x10^3/uL (0.3-0.8) 12/06/24 05:50 Eos # (Auto) 0.2 x10^3/uL (0.0-0.2) 12/06/24 05:50 Baso # (Auto) 0.1 X10^3/uL (0.0-0.1) 12/06/24 05:50 Absolute Nucleated RBC 0.0 /100WBC 12/06/24 05:50 Total Counted 100 12/05/24 08:41 Neutrophils % (Manual) 78 % (39-76) H 12/05/24 08:41 Band Neutrophils % 9 % (0-10) 12/05/24 08:41 Lymphocytes % (Manual) 6 % (13-43) L 12/05/24 08:41 Monocytes % (Manual) 7 % (4-9) 12/05/24 08:41 Plt Morphology Comment Normal (NORMAL) 12/05/24 08:41 RBC Morphology Normal (NORMAL) 12/05/24 08:41 PT 13.5 SECONDS (11.8-14.3) 12/05/24 08:41 INR Target Range - 12/05/24 08:41 INR 1.01 (0.8-1.3) 12/05/24 08:41 APTT 25.1 SECONDS (22.9-36.5) 12/05/24 08:41 PTT Comment - 12/05/24 08:41 Fibrinogen 444 mg/dL (239-489) 12/05/24 08:41 Sodium 145 mmol/L (136-145) 12/06/24 05:50 Corrected Sodium TNP 12/06/24 05:50 Potassium 4.3 mmol/L (3.5-5.1) 12/06/24 05:50 Chloride 112 mmol/L (98-107) H 12/06/24 05:50 Carbon Dioxide 25.4 mmol/L (21-32) 12/06/24 05:50 BUN 21 mg/dL (7-18) H 12/06/24 05:50 Creatinine 1.70 mg/dL (0.70-1.30) H 12/06/24 05:50 Est GFR (MDRD) Af Amer 51 (>60) L 12/06/24 05:50 Est GFR (MDRD) Non-Af 42 (>60) L 12/06/24 05:50 Glucose 99 mg/dL (65-99) 12/06/24 05:50 Lactic Acid 1.4 mmol/L (0.4-2.0) 12/06/24 03:40 Calcium 7.9 mg/dL (8.5-10.1) L 12/06/24 05:50 Corrected Calcium 9.1 mg/dL (8.5-10.1) 12/06/24 05:50 Total Bilirubin 0.40 mg/dL (0.2-1.0) 12/06/24 05:50 AST 17 Units/L (15-37) 12/06/24 05:50 ALT 35 Units/L (12-78) 12/06/24 05:50 Alkaline Phosphatase 69 Units/L (46-116) 12/06/24 05:50 Creatine Kinase 58 Units/L (39-308) 12/05/24 08:41 Troponin I High Sens 10.9 ng/L (4.0-60.0) 12/05/24 08:41 Total Protein 6.1 g/dL (6.4-8.2) L 12/06/24 05:50 Albumin 2.5 g/dL (3.4-5.0) L 12/06/24 05:50 Globulin 3.6 g/dL (2.5-4.5) 12/06/24 05:50 Albumin/Globulin Ratio 0.7 Ratio (1.1-2.1) L 12/06/24 05:50 Triglycerides 82 mg/dL (0-150) 12/05/24 08:41 Cholesterol 107 mg/dL (0-200) 12/05/24 08:41 LDL Cholesterol, Calc 32 mg/dL (0-100) 12/05/24 08:41 HDL Cholesterol 59 mg/dL (40-60) 12/05/24 08:41 Cholesterol/HDL Ratio 1.8 (0.0-5.0) 12/05/24 08:41 Specimen Type Clean catch urine 12/05/24 10:29 Urine Color Yellow (YELLOW) 12/05/24 10: Urine Appearance Clear (CLEAR) 12/05/24 10: Urine pH 6.0 (5.0 - 8.0) 12/05/24 10:29 Ur Specific [place] 1.020 (1.000-1.030) 12/05/24 10:29 Urine Protein 2+ (NEGATIVE) 12/05/24 10:29 Urine Glucose (UA) 4+ (NEGATIVE) 12/05/24 10:29 Urine Ketones Negative (NEGATIVE) 12/05/24 10: Urine Blood 1+ (NEGATIVE) 12/05/24 10: Urine Nitrite Negative (NEGATIVE) 12/05/24 10: Urine Bilirubin Negative (NEGATIVE) 12/05/24 10:29 Urine Urobilinogen Normal (NORMAL) 12/05/24 10:29 Ur Leukocyte Esterase Negative (NEGATIVE) 12/05/24 10:29 Urine RBC None seen /HPF (0-3) 12/05/24 10:29 Urine WBC None seen /HPF (0-5) 12/05/24 10:29 Ur Squamous Epith Cells Negative /HPF (NEGATIVE) 12/05/24 10:29 Urine Bacteria Negative /HPF (NEGATIVE) 12/05/24 10:29 Ur Culture Indicated? No/not indicated 12/05/24 10:29 SARS-CoV-2 (PCR) Negative (NEGATIVE) 12/05/24 09:06 Influenza Type A (PCR) Negative (NEGATIVE) 12/05/24 09:06 Influenza Type B (PCR) Negative (NEGATIVE) 12/05/24 09:06 RSV (PCR) Negative (NEGATIVE) 12/05/24 09:06 Review of Systems Constitutional: Weakness Eyes: No Symptoms Reported ENT: No Symptoms Reported Respiratory: Cough, Shortness of Breath and Sputum Cardiovascular: No Symptoms Reported Gastrointestinal: No Symptoms Reported Genitourinary: No Symptoms Reported Musculoskeletal: No Symptoms Reported Skin: No Symptoms Reported Neurological: No Symptoms Reported Physical Exam Vital Signs: Vital Signs Temperature 98.4 F Temperature 97.9 F Pulse Rate [Bilateral Radial] 79 Pulse Rate [Bilateral Radial] 87 Pulse Rate 84 Pulse Rate 76 Respiratory Rate 18 Respiratory Rate 19 Blood Pressure [Left Arm] 158/70 Blood Pressure [Left Arm] 160/74 O2 Sat by Pulse Oximetry 94 O2 Sat by Pulse Oximetry 95 O2 Sat by Pulse Oximetry 98 O2 Sat by Pulse Oximetry 95 Oriented: Normal Eyes: Normal Ear: Normal Nose: Normal Throat: Normal Respiratory: Diminished Throughout Cardiovascular: Normal : Normal Auscultation: Bowel Sounds: Normal Palpation: Normal Tenderness: Normal Skin: Normal Musculoskeletal: Normal Psychiatric: Normal Mood Description: Calm and Appropriate Affect: Normal Speech Pattern: Clear and Appropriate Assessment/Plan (1) Pneumonia: Qualifiers: Pneumonia type: due to unspecified organism Laterality: unspecified laterality Lung location: unspecified part of lung Qualified Code(s): J18.9 - Pneumonia, unspecified organism Status: Acute Plan: Continue IV antibiotics and follow-up cultures. (2) Sepsis: Qualifiers: Sepsis type: sepsis due to unspecified organism Sepsis acute organ dysfunction status: unspecified Qualified Code(s): A41.9 - Sepsis, unspecified organism Status: Acute (3) Hypertension: Qualifiers: Hypertension type: primary hypertension Qualified Code(s): I10 - Essential (primary) hypertension Status: Acute (4) Hyperlipidemia: Status: Acute Review H&P Reviewed: Yes Patient was examined?: Yes
[2024-12-06] MEDS: ZITHROMAX INJ 500 MG VIAL 500 MG in NS 250 ML IV 250 ML IV SCH (11:57)
[2024-12-07 06:26] LABS: MEAN PLATELET VOLUME 8.2 fL (7.4-11.0); RED CELL DISTRIBUTION WIDTH 15.6 % (11.6-16.5)
[2024-12-07 06:35] LABS: COR CA(FOR HYPOALB) 9.2 mg/dL (8.5-10.1); CREATININE 1.59 mg/dL (0.70-1.30); eGFR NON BLACK RACES 45 (>60)
--- NOTE | 2024-12-07 10:54 | PCM.PROG ---
Progress Note Progress Note for Day of Date of Exam: 12/07/24 Subjective Subjective: Patient is a 74-year-old male with past medical history of Hypertension, CAD/CABG, Hyperlipidemia, admitted for pneumonia and sepsis. This morning he reports feeling significantly better. No acute events overnight. He does continue to cough clear sputum. Labs/imaging: WBC 9.6, hemoglobin 12.8, platelets 160, sodium 146, potassium 4.1, creatinine 1.59, glucose 98, blood cultures pending, AIT pending. Continue IV fluids normal saline and IV antibiotics Rocephin and Azithromycin. Continue with scheduled bronchodilators. Home medications have been resumed. Otherwise continue with current treatment plan. Continue closely monitor and follow-up labs/imaging. Past Medical Family Social History Allergies: Allergies No Known Drug Allergies Allergy (Unknown, Verified 12/05/24 09:13) Onset Date: 03/18/2020 Review of Systems ROS changes noted: see HPI Vital Signs and I&O's Vital Signs: Vital Signs Temperature 98.1 F Temperature 97.7 F Pulse Rate [Left Brachial] 76 Pulse Rate [Left Brachial] 72 Pulse Rate 85 Pulse Rate 70 Respiratory Rate 19 Respiratory Rate 20 Blood Pressure [Left Arm] 138/64 Blood Pressure [Left Arm] 136/65 O2 Sat by Pulse Oximetry 94 O2 Sat by Pulse Oximetry 94 O2 Sat by Pulse Oximetry 95 O2 Sat by Pulse Oximetry 95 Intake and Output: Intake & Output 12/04/24 12/05/24 12/06/24 12/07/24 23:59 23:59 23:59 23:59 Intake Total 2028 3682 / 3682 852 / 852 Balance 2028 3682 / 3682 852 / 852 Physical Exam Oriented: Normal Eyes: Normal Ear: Normal Nose: Normal Throat: Normal Respiratory: Normal Cardiovascular: Normal : Normal Auscultation: Bowel Sounds: Normal Tenderness: Normal Skin: Normal Musculoskeletal: Normal Psychiatric: Normal Mood Description: Calm and Appropriate Affect: Normal Speech Pattern: Clear Laboratory and Diagnostics 12/07/24 05:30 12/07/24 05:30 Labs: Laboratory WBC 9.6 X10^3/uL (3.6-10.0) 12/07/24 05:30 RBC 4.15 X10^6/uL (4.7-6.0) L 12/07/24 05:30 Hgb 12.8 g/dL (13.5-18.0) L 12/07/24 05:30 Hct 37.5 % (42.0-54.0) L 12/07/24 05:30 MCV 90.4 fL (80.0-100.0) 12/07/24 05:30 MCH 30.7 pg (27.0-34.0) 12/07/24 05:30 MCHC 34.0 g/dL (33.0-35.0) 12/07/24 05:30 RDW 15.6 % (11.6-16.5) 12/07/24 05:30 Plt Count 160 X10^3/uL (150.0-450.0) 12/07/24 05:30 Plt Count Comment Adequate (ADEQUATE) 12/05/24 08:41 MPV 8.2 fL (7.4-11.0) 12/07/24 05:30 Neut % (Auto) 78.7 % (42.0-75.0) H 12/07/24 05:30 Lymph % (Auto) 11.0 % (21.0-51.0) L 12/07/24 05:30 [place] % (Auto) 6.4 % (0.0-13.0) 12/07/24 05:30 Eos % (Auto) 3.1 % (0.9-2.9) H 12/07/24 05:30 Baso % (Auto) 0.8 % (0.2-1.0) 12/07/24 05:30 Neut # (Auto) 7.5 x10^3/uL (2.2-4.8) H 12/07/24 05:30 Lymph # (Auto) 1.1 X10^3/uL (1.3-2.9) L 12/07/24 05:30 [place] # (Auto) 0.6 x10^3/uL (0.3-0.8) 12/07/24 05:30 Eos # (Auto) 0.3 x10^3/uL (0.0-0.2) H 12/07/24 05:30 Baso # (Auto) 0.1 X10^3/uL (0.0-0.1) 12/07/24 05:30 Absolute Nucleated RBC 0.0 /100WBC 12/07/24 05:30 Total Counted 100 12/05/24 08:41 Neutrophils % (Manual) 78 % (39-76) H 12/05/24 08:41 Band Neutrophils % 9 % (0-10) 12/05/24 08:41 Lymphocytes % (Manual) 6 % (13-43) L 12/05/24 08:41 Monocytes % (Manual) 7 % (4-9) 12/05/24 08:41 Plt Morphology Comment Normal (NORMAL) 12/05/24 08:41 RBC Morphology Normal (NORMAL) 12/05/24 08:41 PT 13.5 SECONDS (11.8-14.3) 12/05/24 08:41 INR Target Range - 12/05/24 08:41 INR 1.01 (0.8-1.3) 12/05/24 08:41 APTT 25.1 SECONDS (22.9-36.5) 12/05/24 08:41 PTT Comment - 12/05/24 08:41 Fibrinogen 444 mg/dL (239-489) 12/05/24 08:41 Sodium 146 mmol/L (136-145) H 12/07/24 05:30 Corrected Sodium TNP 12/07/24 05:30 Potassium 4.1 mmol/L (3.5-5.1) 12/07/24 05:30 Chloride 114 mmol/L (98-107) H 12/07/24 05:30 Carbon Dioxide 25.2 mmol/L (21-32) 12/07/24 05:30 BUN 20 mg/dL (7-18) H 12/07/24 05:30 Creatinine 1.59 mg/dL (0.70-1.30) H 12/07/24 05:30 Est GFR (MDRD) Af Amer 55 (>60) L 12/07/24 05:30 Est GFR (MDRD) Non-Af 45 (>60) L 12/07/24 05:30 Glucose 98 mg/dL (65-99) 12/07/24 05:30 Lactic Acid 1.4 mmol/L (0.4-2.0) 12/06/24 03:40 Calcium 7.9 mg/dL (8.5-10.1) L 12/07/24 05:30 Corrected Calcium 9.2 mg/dL (8.5-10.1) 12/07/24 05:30 Total Bilirubin 0.50 mg/dL (0.2-1.0) 12/07/24 05:30 AST 18 Units/L (15-37) 12/07/24 05:30 ALT 33 Units/L (12-78) 12/07/24 05:30 Alkaline Phosphatase 62 Units/L (46-116) 12/07/24 05:30 Creatine Kinase 58 Units/L (39-308) 12/05/24 08:41 Troponin I High Sens 10.9 ng/L (4.0-60.0) 12/05/24 08:41 Total Protein 5.7 g/dL (6.4-8.2) L 12/07/24 05:30 Albumin 2.4 g/dL (3.4-5.0) L 12/07/24 05:30 Globulin 3.3 g/dL (2.5-4.5) 12/07/24 05:30 Albumin/Globulin Ratio 0.7 Ratio (1.1-2.1) L 12/07/24 05:30 Triglycerides 82 mg/dL (0-150) 12/05/24 08:41 Cholesterol 107 mg/dL (0-200) 12/05/24 08:41 LDL Cholesterol, Calc 32 mg/dL (0-100) 12/05/24 08:41 HDL Cholesterol 59 mg/dL (40-60) 12/05/24 08:41 Cholesterol/HDL Ratio 1.8 (0.0-5.0) 12/05/24 08:41 Specimen Type Clean catch urine 12/05/24 10:29 Urine Color Yellow (YELLOW) 12/05/24 10:29 Urine Appearance Clear (CLEAR) 12/05/24 10:29 Urine pH 6.0 (5.0 - 8.0) 12/05/24 10:29 Ur Specific [place] 1.020 (1.000-1.030) 12/05/24 10:29 Urine Protein 2+ (NEGATIVE) 12/05/24 10:29 Urine Glucose (UA) 4+ (NEGATIVE) 12/05/24 10:29 Urine Ketones Negative (NEGATIVE) 12/05/24 10:29 Urine Blood 1+ (NEGATIVE) 12/05/24 10:29 Urine Nitrite Negative (NEGATIVE) 12/05/24 10:29 Urine Bilirubin Negative (NEGATIVE) 12/05/24 10:29 Urine Urobilinogen Normal (NORMAL) 12/05/24 10:29 Ur Leukocyte Esterase Negative (NEGATIVE) 12/05/24 10:29 Urine RBC None seen /HPF (0-3) 12/05/24 10:29 Urine WBC None seen /HPF (0-5) 12/05/24 10:29 Ur Squamous Epith Cells Negative /HPF (NEGATIVE) 12/05/24 10:29 Urine Bacteria Negative /HPF (NEGATIVE) 12/05/24 10:29 Ur Culture Indicated? No/not indicated 12/05/24 10:29 SARS-CoV-2 (PCR) Negative (NEGATIVE) 12/05/24 09:06 Influenza Type A (PCR) Negative (NEGATIVE) 12/05/24 09:06 Influenza Type B (PCR) Negative (NEGATIVE) 12/05/24 09:06 RSV (PCR) Negative (NEGATIVE) 12/05/24 09:06 Plan (1) Pneumonia: Status: Acute Qualifiers: Laterality: unspecified laterality Lung location: unspecified part of lung Pneumonia type: due to unspecified organism Qualified Code(s): J18.9 - Pneumonia, unspecified organism Plan: Continue IV antibiotics and follow-up cultures. (2) Sepsis: Status: Acute Qualifiers: Sepsis acute organ dysfunction status: unspecified Sepsis type: sepsis due to unspecified organism Qualified Code(s): A41.9 - Sepsis, unspecified organism (3) Hypertension: Status: Acute Qualifiers: Hypertension type: primary hypertension Qualified Code(s): I10 - Essential (primary) hypertension (4) Hyperlipidemia: Status: Acute
[2024-12-07] MEDS: DIOVAN TAB 160 MG PO SCH (15:42)
[2024-12-08 05:42] LABS: MEAN PLATELET VOLUME 8.3 fL (7.4-11.0); RED CELL DISTRIBUTION WIDTH 15.2 % (11.6-16.5)
[2024-12-08 05:53] LABS: CREATININE 1.47 mg/dL (0.70-1.30); eGFR NON BLACK RACES 50 (>60)
[2024-12-08 05:58] LABS: COR CA(FOR HYPOALB) 9.2 mg/dL (8.5-10.1)
--- NOTE | 2024-12-08 06:52 | RAD ---
EXAM: CHEST, PA/LAT ADULT HISTORY: pneumonia; COMPARISON: 2024 FINDINGS: The cardiomediastinal silhouette is stable. Similar post sternotomy changes. Scattered bilateral airspace opacities. No pneumothorax or effusion. No acute osseous abnormality. IMPRESSION: Bilateral opacities which may be due to edema or pneumonia. THIS IS AN ELECTRONICALLY VERIFIED FINAL REPORT 12/08/2024 6:49 AM - Electronically signed by Pernell Randolph MD
[2024-12-08] MEDS: MILK OF MAGNESIA PO ONE (09:22)
[2024-12-08] MEDS: LASIX IVP SCH (09:22)
[2024-12-08 12:05] VITALS: BP 165/72; PULSE 72; RESP 19; TEMP 98.2; O2SAT 96
== END 2024-12-08 12:00 | disposition home or self-care (01) ==
LOC: ER 08:26 → MED/SURG 08:26
PROVIDERS: ADMIT Internal Medicine; ATTEND Internal Medicine
DX: R79.89 Other specified abnormal findings of blood chemistry; E78.5 Hyperlipidemia, unspecified; R41.82 Altered mental status, unspecified; R06.02 Shortness of breath; K21.9 Gastro-esophageal reflux disease without esophagitis; E83.51 Hypocalcemia; Z95.2 Presence of prosthetic heart valve; I10 Essential (primary) hypertension; J18.8 Other pneumonia, unspecified organism; J44.9 Chronic obstructive pulmonary disease, unspecified; R47.81 Slurred speech; M62.81 Muscle weakness (generalized); A41.89 Other specified sepsis; I25.810 Atherosclerosis of coronary artery bypass graft(s) without angina pectoris; Z03.818 Encounter for observation for suspected exposure to other biological agents ruled out; R42 Dizziness and giddiness